=== PATIENT | male | born 1940 | race Two or more races ===

== ENCOUNTER 2018-08-31 17:21 | Inpatient (IN) | payer MEDICARE ==
[~2018-08-31] VITALS: Ht 170.2 cm; Wt 60.3 kg
[2018-08-31] MEDS ORDERED: CLON0.5T12 PO (17:48)
[2018-08-31] MEDS ORDERED: CARB-96 PO (17:48)
[2018-08-31] MEDS ORDERED: CARB-93 PO (17:48)
[2018-08-31] MEDS ORDERED: ASPI81TA31 PO (17:48)
[2018-08-31] MEDS ORDERED: VYTORIN PO (17:48)
[2018-08-31] MEDS ORDERED: RASA1TAB PO (17:48)
[2018-08-31] MEDS ORDERED: SIMVASTATIN (17:48)
[2018-08-31] MEDS ORDERED: CLOP75TA33 PO (17:48)
[2018-08-31] MEDS ORDERED: LOSA50TA39 PO (17:48)
[2018-08-31] MEDS ORDERED: QUET50TA PO (17:48)
[2018-08-31] MEDS ORDERED: AMLODIPINE 5 MG TABLET PO ONE (18:30)
[2018-08-31] MEDS ORDERED: AMLODIPINE 5 MG TABLET ONE (18:32)
[2018-08-31] MEDS ORDERED: MAGNESIUM HYDROXIDE 30 ML LIQUID UDC PO PRN (19:45)
[2018-08-31] MEDS ORDERED: TEMAZEPAM 7.5 MG CAPSULE PO PRN (19:45)
[2018-08-31] MEDS ORDERED: MAG HYDROX/AL HYDROX/SIMETH 30 ML LIQUID UDC PO PRN (19:45)
[2018-08-31] MEDS ORDERED: ACETAMINOPHEN 325 MG TABLET PO PRN (19:45)
[2018-08-31] MEDS ORDERED: OLANZAPINE 10 MG VIAL IM ONE (20:05)
[2018-08-31 20:30] VITALS: BP 177/79
[2018-08-31 20:43] VITALS: BP 177/79
[2018-09-01 07:30] VITALS: BP 172/84
[2018-09-01] MEDS: CLONAZEPAM 0.5 MG TABLET PO PRN ×2 (08:50→16:38)
[2018-09-01] MEDS: CARBIDOPA/LEVODOPA 25-100MG TABLET PO SCH ×3 (12:33→20:29)
[2018-09-01 16:00] VITALS: BP 127/58
[2018-09-01 20:00] VITALS: BP 113/61
[2018-09-01] MEDS ORDERED: CARBIDOPA/LEVODOPA CR 50-200MG TABLET.SA PO SCH (21:00)
[2018-09-01] MEDS ORDERED: QUETIAPINE FUMARATE 25 MG TABLET PO SCH (21:00)
[2018-09-02] MEDS ORDERED: LOSARTAN POTASSIUM 50 MG TABLET PO SCH (09:00)
[2018-09-02] MEDS ORDERED: QUETIAPINE FUMARATE 25 MG TABLET PO SCH (09:00)
[2018-09-02] MEDS ORDERED: CLOPIDOGREL 75 MG TABLET PO SCH (09:00)
[2018-09-02] MEDS ORDERED: ASPIRIN 81 MG TAB.CHEW PO SCH (09:00)
== END 2018-09-01 22:17 | DRG 885 ==
LOC: ER 17:24 → GPS 18:31
PROVIDERS: ADMIT Psychiatry & Neurology Psychiatry; ATTEND Registered Nurse
DX: F29 Unspecified psychosis not due to a substance or known physiological condition (principal); F02.81 Dementia in other diseases classified elsewhere, unspecified severity, with behavioral disturbance; G31.83 Neurocognitive disorder with Lewy bodies; E78.5 Hyperlipidemia, unspecified; Z79.899 Other long term (current) drug therapy; J43.2 Centrilobular emphysema
CPT/HCPCS: 36415; 71045; A4663; J2358